=== PATIENT | female | born 1950 | race Caucasian/White ===

== ENCOUNTER → 2017-11-12 | Outpatient (CLI) | payer OTHER, MEDICARE | LOC: FIMAGING 12:13 | PROVIDERS: ATTEND Internal Medicine | DX: Z12.31 Encounter for screening mammogram for malignant neoplasm of breast (principal); Z85.3 Personal history of malignant neoplasm of breast ==

== ENCOUNTER 2018-10-06 07:15 | Observation (INO) | payer OTHER, MEDICARE ==
--- NOTE | 2018-10-06 08:43 | PDHPUP ---
History & Physical Update H&P update statement: This history and physical update is based on an assessment of the patient which was completed after admission or registration (within 24 hours), but prior to the surgery/procedure. H&P update: H&P reviewed & patient examined, no change in patient's condition since H&P completed
[2018-10-07] MEDS ORDERED: ceFAZolin 2 GM/DEXTROSE 100 ML IV ONE (05:57)
[2018-10-07] MEDS ORDERED: LR 1,000 ML IV ONE (05:57)
--- NOTE | 2018-10-07 06:59 | PDANEPAE ---
ANE History of Present Illness 68 yo for thyroidectomy ANE Past Medical History - Cardiovascular History Hx Hypertension: No Hx Arrhythmias: No Hx Chest Pain: No Hx Coronary Artery / Peripheral Vascular Disease: No Hx CHF / Valvular Disease: No Hx Palpitations: No - Pulmonary History Hx COPD: No Hx Asthma/Reactive Airway Disease: No Hx Recent Upper Respiratory Infection: Yes Hx Oxygen in Use at Home: No Hx Sleep Apnea: No Sleep Apnea Screening Result - Last Documented: Negative Pulmonary History Comment: BACTERIAL RHINOSINUSITIS/BRONCHOSPASMS - Neurologic History Hx Cerebrovascular Accident: No Hx Seizures: No Hx Dementia: No - Endocrine History Hx Diabetes: Yes Endocrine History Comment: HYPOTHYROIDISM. THYROID NODULES/GOITER - Renal History Hx Renal Disorders: No - Liver History Hx Hepatic Disorders: No - Neurological & Psychiatric Hx Hx Neurological and Psychiatric Disorders: No - Cancer History Hx Cancer: Yes Cancer History Comment: BREAST - Congenital Disorder History Hx Congenital Disorders: No - GI History Hx Gastrointestinal Disorders: Yes Gastrointestinal History Comment: HX OF COLON POLYPS. OCCASIONAL NEXIUM FOR PREVENTION OF HEARTBURN WHEN DINING OUT - Other Health History Other Health History: OSTEOPOROSIS. OSTEOARTHRITIS RT HIP - Chronic Pain History Chronic Pain: No - Surgical History Prior Surgeries: RT EYE LASER PROCEDURE FOR RETINAL TEAR 08/24/18. LT BREAST BX. RT BREAST LUMPECTOMY 2008 ANE Review of Systems Review of Systems: - Exercise capacity METS (RN): 5 METS ANE Patient History - Allergies Allergies/Adverse Reactions: No Known Allergies Allergy (Verified 09/29/18 14:43) - Home Medications Home Medications: Ascorbic Acid [Vitamin C 500 mg (*)] 500 mg PO DAILY 09/29/18 [Last Taken ] Calcium Carbonate [Oyster Shell Calcium 500 mg (*)] 500 mg PO DAILY 09/29/18 [ Last Taken 09/30/18] Cholecalciferol Vit D3 [Vitamin D3 (*)] 1,000 units PO DAILY 09/29/18 [Last Taken 09/30/18] Herbals/Supplements -Info Only 1 ea PO DAILY 09/29/18 [Last Taken 09/30/18] Multivitamins [Multivitamin (*)] 1 each PO DAILY 09/29/18 [Last Taken 09/30/18] Psyllium Husk (with Sugar) [Metamucil Packet] 1 each PO DAILY 09/29/18 [Last Taken 09/30/18] - NPO status NPO Status: no food or drink >8 hours NPO Since - Liquids (Date): 10/07/18 NPO Since - Liquids (Time): 00:00 NPO Since - Solids (Date): 10/06/18 NPO Since - Solids (Time): 19:00 - Smoking Hx Smoking Status: Never smoked ANE Labs/Vital Signs - Vital Signs Blood Pressure: 111/75 Heart Rate: 75 Respiratory Rate: 14 O2 Sat (%): 96 Height: 5 ft 4 in Weight: 57.606 kg ANE Physical Exam - Airway Neck exam: FROM Mallampati Score: Class 2 Mouth exam: normal dental/mouth exam - Pulmonary Pulmonary: no respiratory distress - Cardiovascular Cardiovascular: regular rate and rhythym - ASA Status ASA Status: II ANE Anesthesia Plan Anesthesia Plan: general endotracheal anesthesia
[2018-10-07] MEDS ORDERED: MIDAZOLAM 2 MG/2 ML VIAL IVP ONE (07:03)
[2018-10-07] MEDS ORDERED: LIDO/EPI 1% **Not for Epidural 20 ML MDV ONE (07:04)
[2018-10-07] MEDS ORDERED: REMIFENTANIL HCL 1 MG VIAL ONE ×2 (07:18→08:25)
[2018-10-07] MEDS ORDERED: fentaNYL 100 MCG/2 ML INJ ONE ×2 (07:18→10:04)
[2018-10-07] MEDS ORDERED: PROPOFOL/EMULSION 500 MG/50 ML BOTTLE IV ONE (07:18)
[2018-10-07] MEDS ORDERED: PROPOFOL 200 MG/20 ML VIAL ONE (08:25)
[2018-10-07] MEDS ORDERED: ONDANSETRON 4 MG/2 ML VIAL ONE (09:16)
[2018-10-07] MEDS ORDERED: DEXAMETHASONE 4 MG/ML VIAL ONE (09:16)
[2018-10-07] MEDS ORDERED: ROCURONIUM 50 MG/5 ML VIAL ONE (09:16)
[2018-10-07] MEDS ORDERED: NALOXONE HCL 0.4 MG/ML INJ IVP PRN (09:18)
[2018-10-07] MEDS ORDERED: PROMETHAZINE HCL 25 MG/ML INJ IVP PRN (09:18)
[2018-10-07] MEDS ORDERED: ONDANSETRON 4 MG/2 ML VIAL IVP PRN ×2 (09:18→19:13)
[2018-10-07] MEDS ORDERED: OXYCODONE/APAP 5/325 TAB PO PRN (09:53)
[2018-10-07] MEDS ORDERED: D5W 1/2 NS W/ 20 KCl/L 1,000 ML IV SCH (10:00)
[2018-10-07] MEDS ORDERED: ACETAMINOPHEN 325 MG TAB PO PRN (10:03)
[2018-10-07] MEDS: fentaNYL 100 MCG/2 ML INJ IVP PRN ×2 (10:08→10:21)
--- NOTE | 2018-10-07 10:10 | POSTOPPROG ---
Post Op Note Date of Operation: 10/07/18 Surgeon: aDvid Feldman Floating Operator: Randolph Gambino Pre-op Diagnosis: Hyperfunctioning nodule with nodular goiter Post-op Diagnosis: Same Procedure: Total thyroidectomy Inf/Abcess present in the surg proc area at time of surgery?: No EBL: 50-100 (50ml) Drains: Hemovac, [place]
--- NOTE | 2018-10-07 10:15 | SOAPPROG ---
SOAP Progress Note Assessment/Plan: Assessment: Doing well status post total thyroidectomy. Plan: 10/07/18 10:12 Continue support. Calcium checks. Drain. Subjective: Some discomfort Objective: Voice strong. Neck flat. Drain working. Minimal output. Vital Signs Temp Pulse Resp BP Pulse Ox 36.2 C 75 14 111/75 96 10/07/18 09:53 10/07/18 06:58 10/07/18 06:58 10/07/18 06:58 10/07/18 06:58 Minimal drain output - Pending Discharge Pending Discharge Within 24 Hours: No Pending Discharge Within 48 Hours: Yes Pending Discharge Date: 10/09/18 Pending Discharge Time: 11:00 ICD10 Worksheet Patient Problems: Problems Problem Status Onset Thyroid adenoma, toxic Acute - ICD10 Problem Qualifiers (1) Thyroid adenoma, toxic
--- NOTE | 2018-10-07 10:29 | GOP ---
[f rep st] OPERATIVE REPORT DATE OF OPERATION: 10/07/2018 SURGEON: David Feldman MD TRANSFER WORKER: assistant sales manager, Dr. Randolph Gambino Second assistant womens volleyball coach, SHANTANU Cote ANESTHESIA: General endotracheal. PREOPERATIVE DIAGNOSIS: Multinodular goiter with hyperfunctioning thyroid nodules. POSTOPERATIVE DIAGNOSIS: Multinodular goiter with hyperfunctioning thyroid nodules. PROCEDURE PERFORMED: FINDINGS: 1. Large multinodular goiter as above. 2. Positive identification of both recurrent laryngeal nerves. 3. Positive identification of the inferior parathyroid glands at least. SPECIMENS: Total thyroid. ESTIMATED BLOOD LOSS: 50 mL. DESCRIPTION OF PROCEDURE: The patient was placed in a supine position and orally endotracheally intu bated. We had marked her neck in the preoperative holding area. We marked an incision in a relaxed skin tension crease in her neck and injected with 1% lidocaine with 100,000 epinephrine. She was asia rilely prepped and draped with a non-iodine based solution. After 3 minutes, we draped, I should say . We made our incision through the relaxed skin tension crease and came down through the platysma. Sub platysmal flaps were elevated. The straps were divided in the midline. She had a very large goitero us thyroid on the right with a large nodule throughout the gland and the larger one down low that was subclavicular and almost retroesophageal. Using traction-countertraction technique, we dissected th e strap muscles away from the gland and delivered the gland medially into the neck. We were able to identify the right recurrent laryngeal nerve. I believe we saw the parathyroid inferiorly on her rig ht. We had good release of the gland into the neck. We then released the strap muscles away from th e gland on the left and again using traction-countertraction technique, dissected the gland away from the strap muscles and out of the neck. Again, we were able to positively identify the left recurren t laryngeal nerve and the inferior parathyroid gland nicely. The specimen was removed in its entiret y and sent to Pathology with a suture in the right lobe. The right lobe measured 9 cm x 8 cm. The l eft lobe was 5 cm x 4 cm after removal. The wound was copiously irrigated and suctioned. Hemostasis was achieved with bipolar. A 10-Tamazight drain was placed deep to the strap muscles and sewn into position with 3-0 nylon. The straps were re approximated with 3-0 chromic. The platysma was reapproximated with 3-0 chromic. The skin was close d with a running 5-0 nylons. A pressure dressing was applied. She tolerated the procedure well and was in good condition at the end of the procedure. /[id number]/MODL
[2018-10-07] MEDS ORDERED: HYDROmorphONE/DILAUDID 1 MG/ML INJ ONE (10:31)
[2018-10-07] MEDS: HYDROmorphONE/DILAUDID 1 MG/ML INJ IVP PRN ×2 (10:33→10:47)
--- NOTE | 2018-10-07 10:47 | POSTANESTH ---
Post Anesthetic Evaluation Cardiovascular Status: Normal, Stable Respiratory Status: Normal, Stable Level of Consciousness/Mental Status: Can Participate in Eval Pain Control: Adequate, Prn Tx Ordered Nausea/Vomiting Control: Adequate, Prn Tx Ordered Complications Possibly Related to Anesthesia: None Noted
--- NOTE | 2018-10-07 14:21 | SOAPPROG ---
SOAP Progress Note Assessment/Plan: Assessment: Doing well status post total thyroidectomy. Update 1422: Comfortable. Voice strong. Neck flat. Ca++ 1.15. Drain 30ml. Working. Scripts for synthroid, percocet, zofran givne to nurse. Plan: 10/07/18 10:12 Continue support. Calcium checks. Drain. 10/07/18 14:20 Objective: Vital Signs Temp Pulse Resp BP Pulse Ox 36.5 C 83 18 162/91 H 97 10/07/18 13:23 10/07/18 13:23 10/07/18 13:23 10/07/18 13:23 10/07/18 13:23 10/06/18 10/07/18 10/08/18 05:59 05:59 05:59 Intake Total 1620 Output Total 50 Balance 1570 ICD10 Worksheet Patient Problems: Problems Problem Status Onset Thyroid adenoma, toxic Acute - ICD10 Problem Qualifiers (1) Thyroid adenoma, toxic
[2018-10-07] MEDS: CALCIUM CARBONATE 500 MG CHEWABLE TAB PO SCH ×2 (19:45→22:53)
[2018-10-08] MEDS ORDERED: LEVOTHYROXINE 75 MCG TAB PO SCH (06:00)
[2018-10-08] MEDS: CALCIUM CARBONATE 500 MG CHEWABLE TAB PO SCH (08:58)
[2018-10-08 11:26] VITALS: BP 129/83
--- NOTE | 2018-10-08 12:08 | SOAPPROG ---
SOAP Progress Note Assessment/Plan: pt s/p total thyroid. Doing well. Minimal pain. No numbness, voie strong neck- drain removed. 10ml since 6 am. dressing applied. Plan:pt will be discharged home. Has rx. Take her citracal bid. No extra tums needed. Ca is 1.17. F/u Wednesday for suture removal. Call if any concerns 10/08/18 12:06 Objective: Vital Signs Temp Pulse Resp BP Pulse Ox 36.8 C 88 16 129/83 H 92 10/08/18 11:25 10/08/18 11:25 10/08/18 11:25 10/08/18 11:25 10/08/18 11:25 10/07/18 10/08/18 10/09/18 05:59 05:59 05:59 Intake Total 2562 Output Total 110 Balance 2452 ICD10 Worksheet Patient Problems: Problems Problem Status Onset Thyroid adenoma, toxic Acute
--- NOTE | 2018-10-08 12:13 | PDDCSUM ---
Discharge Summary Discharge Summary: pt s/p total thyrpidectomy by Dr. Feldman. Doing well post op. Ca stable at 1.17. No numbness. Voice strong Drain removd. 10ml over past 6 hrs. F/u Wednesday Call if any numbness or tingling. Take Ca bid. Synthroid 75mcg daily
--- NOTE | 2018-10-08 16:06 | ASDISCHSUM ---
Discharge Information Plan Status:Home with No Needs Medically Cleared to Leave:10/08/2018 Discharge Date:10/08/2018 01:12 PM CM D/C Disposition:Home, Routine, Self-Care ADT D/C Disposition:Home, Routine, Self-Care Projected Discharge Date:10/08/2018 01:12 PM Transportation at D/C:Family Discharge Delay Reason: Follow-Up Date:10/08/2018 01:12 PM Discharge Slot: Final Diagnosis: Placement Information Patient Contact Information Contact Name:SAAD Relationship: Address:[id number] [place] Work Phone: City:[facility] Phone: [facility]/Zip Code:[place] [address] Email: Financial Information Financial Class:Medicare Primary Plan Desc:MEDICARE OUTPATIENT Primary Plan Number:[id number] Secondary Plan Desc:FILOMENA/AILEEN SUPPLEMENT Secondary Plan Number:[id number] Assessment Information LACE LACE Length of stay for Answers: 2 days current admission Acuity / Level of Answers: No Care: Did the patient have an inpatient admission? Comorbidities - select Answers: Any tumor (including all that apply lymphoma or leukemia) Diabetes (uncontrolled or controlled) Other Notes: Hypothyroid # of Emergency department Answers: 0 visits in the last 6 months Score: 6 Date Signed: 10/08/2018 04:03 PM Electronically Signed By:RIVKA Molina Case Management Discharge Plan Note Case Management Discharge Discharge Order Complete? Answers: Yes Patient to Obtain Answers: via Family Medications Transportation Arranged Answers: Family/Friends Discharge Comments Notes: Pt is s/p a planned thyroidectomy. She lives with her in [place]. She has been cleared by surgery and is discharging home independent today. She has no CM needs. Date Signed: 10/08/2018 04:05 PM Electronically Signed By:RIVKA Molina Intervention Information
== END 2018-10-08 13:12 | disposition home or self-care (01) ==
LOC: F3N 10-07 05:44 → F3E 10-07 11:21
PROVIDERS: ADMIT Otolaryngology; ATTEND Otolaryngology
PROC: 0GTK0ZZ Resection of Thyroid Gland, Open Approach (ICD-10-PCS; principal; 2018-10-07 07:15)
DX: E05.20 Thyrotoxicosis with toxic multinodular goiter without thyrotoxic crisis or storm (principal); Z85.3 Personal history of malignant neoplasm of breast; M81.0 Age-related osteoporosis without current pathological fracture
CPT/HCPCS: 60240; J0690; J1100; J1170; J2250; J2270; J2405; J2704; J3010